=== PATIENT | female | born 1985 | race Caucasian/White ===

== ENCOUNTER 2016-05-16 20:48 | Inpatient (IN) | payer OTHER ==
--- NOTE | 2016-05-16 23:22 | HP ---
COWS - Scale Resting Pulse: 2= [place] 101-120 Sweatin=Flushed/Facial Moisture Restless Observation: 3= Extraneous Movement Pupil Size: 2= Moderately Dilated Bone or Joint Aches: 2= Severe Diffuse Aches Runny Nose/ Eye Tearin= Runny Nose/Eyes GI Upset > 30mins: 3= Vomiting/Diarrhea Tremor Observation: 2= Slight Tremor Visible Yawning Observation: 2= >3x During Session Anxiety or Irritability: 2=Irritable/Anxious Goose Flesh Skin: 0=Smooth Skin COWS Score: 22 CIWA Score - CIWA Score Nausea/Vomitin Muscle Tremors: 3 Anxiety: 3 Agitation: 3 Paroxysmal Sweats: 1-Minimal Palms Moist Orientation: 0-Oriented Tacttile Disturbances: 2-Mild Itch/Numbness/Burn Auditory Disturbances: 2-Mild Harshness/Frighten Visual Disturbances: 2-Mild Sensitivity Headache: 2-Mild CIWA-Ar Total Score: 21 Admission ROS BHS - HPI Chief Complaint: I NEED HELP TO STOP USING DRUGS HEROIN,XANAX,MARIJUANA Allergies/Adverse Reactions: Allergies Allergy/AdvReac Type Severity Reaction Status Date / Time Sulfa (Sulfonamide Allergy Severe Cough Verified 05/16/16 23:14 Antibiotics) History of Present Illness: THIS 30 YEARS OLD FEMLE WITH HEROIN,XANAX,MARIJUANA DEPENDENCE,WITHDRAWAL SYMPTOM,NEVER BEEN IN DETOX BEOFR, UNABLE TO STOP BY HERSELF HISTORY OF WEIGHT LOSS ADD NICOTINE DEPENDENCE DEPRESSION Exam Limitations: No Limitations - Ebola screening Have you traveled outside of the country in the last 21 days: No (N) Have you had contact with anyone from an Ebola affected area: No Do you have a fever: No - Review of Systems Constitutional: Chills, Diaphoresis, Loss of Appetite, Malaise, Night Sweats, Changes in sleep, Weakness, Unintentional Wgt. Loss EENT: reports: Tearing, Nose Congestion Respiratory: reports: No Symptoms reported Cardiac: reports: No Symptoms Reported GI: reports: Diarrhea, Nausea, Vomiting, Abdominal cramping : reports: No Symptoms Reported Musculoskeletal: reports: Back Pain, Joint Pain, Muscle Pain Integumentary: reports: Dryness Neuro: reports: Headache, Tremors Endocrine: reports: No Symptoms Reported Hematology: reports: No Symptoms Reported Psychiatric: reports: Depressed (ADD) Patient History - Patient Medical History Hx Anemia: No Hx Asthma: No Hx Chronic Obstructive Pulmonary Disease (COPD): No Hx Cancer: No Hx Cardiac Disorders: No Hx Congestive Heart Failure: No Hx Hypertension: No Hx Hypercholesterolemia: No Hx Pacemaker: No HX Cerebrovascular Accident: No Hx Seizures: No Hx Dementia: No Hx Diabetes: No Hx Gastrointestinal Disorders: No Hx Liver Disease: No Hx Genitourinary Disorders: No Hx Sexually Transmitted Disorders: No Hx Renal Disease (ESRD): No Hx Thyroid Disease: No Hx Human Immunodeficiency Virus (HIV): No (LAST 03/11 NEGATIVE) Hx Hepatitis C: No Hx Depression: Yes Hx Suicide Attempt: No Hx Bipolar Disorder: No Hx Schizophrenia: No Other Medical History: N SUICIDAL,NO HOMICIDAL,ADD - Patient Surgical History Past Surgical History: No - PPD History Previous Implant?: Yes Documented Results: Negative w/o proof Implanted On Prior [facility] Admission?: No PPD to be Administered?: Yes - Reproductive History Patient is a Female of Child Bearing Age (11 -55 yrs old): Yes Last Menstrual Period: 03/28/16 Patient : No - Smoking Cessation Smoking history: Current every day smoker Have you smoked in the past 12 months: Yes Aproximately how many cigarettes per day: 10 Hx Chewing Tobacco Use: No Initiated information on smoking cessation: Yes 'Breaking Loose' booklet given: 05/16/16 - Substance & Tx. History Hx Alcohol Use: No Hx Substance Use: Yes Substance Use Type: Heroin, Marijuana, Tranquilizers Hx Substance Use Treatment: No - Substances Abused Heroin Route: Inhalation Frequency: Daily Amount used: 6 BAGS Age of first use: 30 Date of Last Use: 05/16/16 Alprazolam (Xanax) Route: Oral Frequency: Daily Amount used: 1MG Age of first use: 18 Date of Last Use: 05/16/16 Family Disease History - Family Disease History Family History: Denies Admission Physical Exam BHS - Vital Signs Vital Signs: Vital Signs Temperature 97.6 F 05/16/16 23:21 Pulse Rate 106 H 05/16/16 23:21 Respiratory Rate 20 05/16/16 23:21 Blood Pressure 112/65 05/16/16 23:21 O2 Sat by Pulse Oximetry (%) - Physical General Appearance: Yes: Moderate Distress, Tremorous, Irritable, Sweating, Anxious HEENTM: Yes: Nasal Congestion Respiratory: Yes: Lungs Clear Neck: Yes: Within Normal Limits Breast: Yes: Breast Exam Deferred Cardiology: Yes: Tachycardia Abdominal: Yes: Within Normal Limits, Normal Bowel Sounds, Non Tender, Flat, Soft Genitourinary: Yes: Within Normal Limits Back: Yes: Muscle Spasm Musculoskeletal: Yes: Back pain, Joint Stiffness, Muscle Pain Extremities: Yes: Tremors Neurological: Yes: radiologic therapist II-XII NML intact, Fully Oriented, Alert, Motor Strength 5/5 Integumentary: Yes: Dry Lymphatic: Yes: Within Normal Limits - Diagnostic (1) Opioid dependence with withdrawal Current Visit: Yes Status: Acute (2) Uncomplicated sedative, hypnotic or anxiolytic withdrawal Current Visit: Yes Status: Acute (3) Cannabis dependence Current Visit: Yes Status: Acute (4) ADD (attention deficit disorder) Current Visit: Yes Status: Chronic (5) Weight loss Current Visit: Yes Status: Chronic (6) Nicotine dependence Current Visit: Yes Status: Acute (7) Depression Current Visit: Yes Status: Acute Cleared for Admission S - Detox or Rehab S Level of Care: Medically Managed Detox Regimen/Protocol: Methadone
[2016-05-16 23:26] VITALS: BMI 21.1
[2016-05-16] MEDS ORDERED: MENTHOL/PHENOL 1 EACH UD MM PRN (23:36)
[2016-05-16] MEDS ORDERED: MAGNESIUM HYDROX 2400MG/30ML ORAL SUSPENSION 30 ML CUP PO PRN (23:36)
[2016-05-16] MEDS ORDERED: MAG HYDROX/AL HYDROX/SIMETH 30 ML UNIT-DOSE CUP PO PRN (23:36)
[2016-05-16] MEDS ORDERED: guaiFENesin/D-METHORPHAN HB 10 ML UNIT-DOSE CUPS PO PRN (23:36)
[2016-05-16] MEDS ORDERED: ACETAMINOPHEN 325 MG TABLET (FP) PO PRN (23:36)
[2016-05-16] MEDS ORDERED: LOPERAMIDE HCL 2 MG CAPSULE PO PRN (23:36)
[2016-05-16] MEDS ORDERED: diphenhydrAMINE HCL 50 MG CAPSULE PO PRN (23:36)
[2016-05-16] MEDS ORDERED: P-EPHED 60MG/TRIPROLIDI 2.5MG TABLET PO PRN (23:36)
[2016-05-16] MEDS ORDERED: MAGNESIUM CITRATE 300 ML BOTTLE PO PRN (23:36)
[2016-05-16] MEDS ORDERED: IBUPROFEN 400 MG TABLET (FP) PO PRN (23:36)
[2016-05-17] MEDS ORDERED: METHADONE HCL 10 MG TABLET (FOR DETOX USE ONLY) PO ONE ×3 (00:29→23:00)
[2016-05-17] MEDS: diazePAM 5 MG TABLET PO PRN ×3 (00:56→22:22)
[2016-05-17 10:16] LABS: MCH 26.9 pg (25.7-33.7); MCHC 32.9 g/dl (32.0-36.0); MEAN CELL VOLUME 81.7 fl (80-96); PLATELET COUNT 151 K/MM3 (134-434); WHITE BLOOD COUNT 5.6 K/mm3 (4.0-10.0)
[2016-05-17 10:24] LABS: ALBUMIN 3.1 g/dl (3.4-5.0); ALK PHOS 113 U/L (45-117); ANION GAP 7 (8-16); BILIRUBIN,TOTAL 0.5 mg/dL (0.2-1.0); CALCIUM 8.4 mg/dL (8.5-10.1); CO2 28 mmol/L (21-32); CREATININE 0.6 mg/dL (0.55-1.02); GLUCOSE,RANDOM 90 mg/dL (74-106); SGOT/AST 21 U/L (15-37); SGPT/ALT 37 U/L (12-78); TOT PROT 5.8 g/dl (6.4-8.2)
[2016-05-17] MEDS: PRENATAL VITAMINS W/ FOLIC ACID TABLET (FP) PO SCH (10:38)
[2016-05-17] MEDS: NICOTINE 21 MG/24 HOURS TOPICAL PATCH TD SCH (10:38)
[2016-05-17 11:46] LABS: HIV 1 & 2 AB NEGATIVE; HIV 1 AGp24 NEGATIVE
--- NOTE | 2016-05-17 13:44 | PN ---
S CIWA - CIWA Score Nausea/Vomitin Muscle Tremors: 2 Anxiety: 3 Agitation: 2 Paroxysmal Sweats: 3 Orientation: 0-Oriented Tacttile Disturbances: 1-Very Mild Itch/Numbness Auditory Disturbances: 0-None Visual Disturbances: 0-None Headache: 1-Very Mild CIWA-Ar Total Score: 14 S COWS - Scale Resting Pulse: 2= [place] 101-120 Sweatin=Flushed/Facial Moisture Restless Observation: 1= Difficult to Sit Still Pupil Size: 1= Pupils >than Normal Bone or Joint Aches: 1= Mild Discomfort Runny Nose/ Eye Tearin= Nasal Congestion GI Upset > 30mins: 1= Stomach Cramp Tremor Observation of Outstretched Hands: 1= Tremor [place], Not Seen Yawning Observation: 1= 1-2x During Session Anxiety or Irritability: 2=Irritable/Anxious Goose Flesh Skin: 0=Smooth Skin COWS Score: 13 S Progress Note (SOAP) Subjective: interrupted sleep, sweats , no cough , no ivda Objective: 05/17/16 13:41 Vital Signs Temperature 97.3 F L 05/17/16 09:58 Pulse Rate 102 H 05/17/16 09:58 Respiratory Rate 18 05/17/16 09:58 Blood Pressure 122/65 05/17/16 09:58 O2 Sat by Pulse Oximetry (%) Laboratory Tests 05/17/16 05/17/16 05/17/16 08:00 08:00 08:00 WBC 5.6 RBC 4.95 Hgb 13.3 Hct 40.4 MCV 81.7 MCHC 32.9 RDW 13.0 Plt Count 151 MPV 10.0 Sodium 142 Potassium 4.0 Chloride 107 Carbon Dioxide 28 Anion Gap 7 L BUN 16 Creatinine 0.6 Creat Clearance w eGFR > 60 Random Glucose 90 Calcium 8.4 L Total Bilirubin 0.5 AST 21 ALT 37 Alkaline Phosphatase 113 Total Protein 5.8 L Albumin 3.1 L RPR Titer HIV 1&2 Antibody Screen Negative HIV P24 Antigen Negative 05/17/16 08:00 WBC RBC Hgb Hct MCV MCHC RDW Plt Count MPV Sodium Potassium Chloride Carbon Dioxide Anion Gap BUN Creatinine Creat Clearance w eGFR Random Glucose Calcium Total Bilirubin AST ALT Alkaline Phosphatase Total Protein Albumin RPR Titer Nonreactive HIV 1&2 Antibody Screen HIV P24 Antigen pt aox3 ambulating in nad , comfortable oral - clear lungs - clear to a/p cor - tachy, no murmur 05/17/16 13:43 pulse ox 96% on ra 05/17/16 17:51 Assessment: 05/17/16 13:43 withdrawl sx's h/o anxety adhd 05/17/16 13:44 Plan: cont. detox increase fluids monitor temps.
--- NOTE | 2016-05-17 15:07 | CONSULT ---
[facility] Psychiatric Consult - Data Date of interview: 05/17/16 Admission source: [facility] Identifying data: First admission to [facility] for this 30 y/o female seeking detox treatment on for heroin,marijuana and benzodiazepine ( xanax) dependence.Patient is ,a mother of one,domiciled and employed. Substance Abuse History: Smoking Cessation. Smoking history: Current every day smoker. Have you smoked in the past 12 months: Yes. Aproximately how many cigarettes per day: 10. Hx Chewing Tobacco Use: No. Initiated information on smoking cessation: Yes. 'Breaking Loose' booklet given: 05/16/16. - Substance & Tx. History. Hx Alcohol Use: No. Hx Substance Use: Yes. Substance Use Type : Heroin, Marijuana, Tranquilizers. Hx Substance Use Treatment: No. Patient confirmed abusing these substances listed above. Medical History: Patient endorses good general health. Psychiatric History: No reported history of psychiatric hospitalizations.Patient indicates that she used to see a private psychiatrist for medication management of ADD.Due to financial difficulties,she dropped out of his care and she switched to her primary care doctor for refills.Ms Thornton states that she is prescribed wellbutrin XL 300 mg/day (not taken for weeks) + adderall 30 mg po tid and xanax 0.5 mg/day.According to the patient,she last took adderall prior coming to [facility].She denies history of suicide attempts. Physical/Sexual Abuse/Trauma History: No reported history of sexual abuse or domestic violence. Mental Status Exam - Mental Status Exam Alert and Oriented to: Time, Place, Person Cognitive Function: Good Patient Appearance: Unkempt, Disheveled (thin habitus) Mood: Nervous, Anxious, Apprehensive Affect: Mood Congruent Patient Behavior: Fatigued, Appropriate, Cooperative Speech Pattern: Clear Voice Loudness: Normal Thought Process: Goal Oriented Thought Disorder: Not Present Hallucinations: Denies Suicidal Ideation: Denies Homicidal Ideation: Denies Insight/Judgement: Poor Sleep: Well Appetite: Good Muscle strength/Tone: Normal Gait/Station: Normal Psychiatric Findings - Problem List ([place] 1, 2,3) (1) Opioid dependence with withdrawal Current Visit: Yes Status: Acute (2) Uncomplicated sedative, hypnotic or anxiolytic withdrawal Current Visit: Yes Status: Acute (3) Cannabis dependence Current Visit: Yes Status: Acute (4) Nicotine dependence Current Visit: Yes Status: Acute (5) Substance induced mood disorder Current Visit: Yes Status: Acute (6) ADD (attention deficit disorder) Current Visit: Yes Status: Chronic (7) Weight loss Current Visit: Yes Status: Chronic - Initial Treatment Plan Initial Treatment Plan: Psychoeducation.Detoxification.Medications : adderall XR 30 mg po daily.Side effects/benefits discussed with the patient.She agrees with this careplan.No scripts at discharge (patient indicates that she has adequate supply of medications at home).Declines to take wellbutrin.Observation.
--- NOTE | 2016-05-17 21:34 | EKG ---
Test Reason : Blood Pressure : / mmHG Vent. Rate : 088 BPM Atrial Rate : 088 BPM P-R Int : 172 ms QRS Dur : 098 ms QT Int : 420 ms P-R-T Axes : 072 057 057 degrees QTc Int : 508 ms NORMAL SINUS RHYTHM PROLONGED QT ABNORMAL ECG NO PREVIOUS ECGS AVAILABLE Confirmed by SERAFIN DANIEL MD ([id number]) on 05/17/2016 9:34:12 PM Referred By: Confirmed By:SERAFIN DANIEL MD
[2016-05-17] MEDS: THIAMINE HCL 100 MG TABLET (FP) PO SCH (22:22)
[2016-05-18] MEDS ORDERED: cloNIDine HCL 0.1 MG TABLET PO ONE (09:15)
[2016-05-18] MEDS: NICOTINE 21 MG/24 HOURS TOPICAL PATCH TD SCH (09:16)
[2016-05-18] MEDS: DEXTROAMPHETAMINE/AMPHETAMINE 10 MG CAP.ER.24H PO SCH (09:16)
[2016-05-18] MEDS: NICOTINE POLACRILEX 2 MG GUM BC PRN ×3 (09:19→14:15)
[2016-05-18] MEDS ORDERED: METHADONE HCL 10 MG TABLET (FOR DETOX USE ONLY) PO ONE (10:00)
[2016-05-18] MEDS: PRENATAL VITAMINS W/ FOLIC ACID TABLET (FP) PO SCH (10:09)
--- NOTE | 2016-05-18 10:54 | PN ---
[facility] CIWA - CIWA Score Nausea/Vomitin-No Nausea/No Vomiting Muscle Tremors: 3 Anxiety: 3 Agitation: 3 Paroxysmal Sweats: 3 Orientation: 0-Oriented Tacttile Disturbances: 0-None Auditory Disturbances: 0-None Visual Disturbances: 0-None Headache: 0-None Present CIWA-Ar Total Score: 12 BHS COWS - Scale Resting Pulse: 4= [place] > 121 Sweatin=Flushed/Facial Moisture Restless Observation: 1= Difficult to Sit Still Pupil Size: 0= Normal to Room Light Bone or Joint Aches: 2= Severe Diffuse Aches Runny Nose/ Eye Tearin= Runny Nose/Eyes GI Upset > 30mins: 1= Stomach Cramp Tremor Observation of Outstretched Hands: 2= Slight Tremor Visible Yawning Observation: 1= 1-2x During Session Anxiety or Irritability: 2=Irritable/Anxious Goose Flesh Skin: 3=[place] COWS Score: 20 BHS Progress Note (SOAP) Subjective: agitation sweats irritable shakes interrupted sleep body aches Objective: 05/18/16 10:55 Vital Signs Temperature 97.1 F L 05/18/16 10:00 Pulse Rate 112 H 05/18/16 10:00 Respiratory Rate 18 05/18/16 10:00 Blood Pressure 121/64 05/18/16 10:00 O2 Sat by Pulse Oximetry (%) Laboratory Tests 05/17/16 05/17/16 05/17/16 08:00 08:00 08:00 WBC 5.6 RBC 4.95 Hgb 13.3 Hct 40.4 MCV 81.7 MCHC 32.9 RDW 13.0 Plt Count 151 MPV 10.0 Sodium 142 Potassium 4.0 Chloride 107 Carbon Dioxide 28 Anion Gap 7 L BUN 16 Creatinine 0.6 Creat Clearance w eGFR > 60 Random Glucose 90 Calcium 8.4 L Total Bilirubin 0.5 AST 21 ALT 37 Alkaline Phosphatase 113 Total Protein 5.8 L Albumin 3.1 L RPR Titer HIV 1&2 Antibody Screen Negative HIV P24 Antigen Negative 05/17/16 08:00 WBC RBC Hgb Hct MCV MCHC RDW Plt Count MPV Sodium Potassium Chloride Carbon Dioxide Anion Gap BUN Creatinine Creat Clearance w eGFR Random Glucose Calcium Total Bilirubin AST ALT Alkaline Phosphatase Total Protein Albumin RPR Titer Nonreactive HIV 1&2 Antibody Screen HIV P24 Antigen awake/alert ambulating no acute distress Assessment: 05/18/16 11:03 withdrawal sx Plan: continue detox increase fluids clonidine 0.1mg bid
[2016-05-18] MEDS: diazePAM 5 MG TABLET PO PRN ×2 (16:01→22:23)
--- NOTE | 2016-05-18 18:57 | PN ---
Psychiatric Progress Note Vital Signs: Vital Signs Period Temp Pulse Resp BP Sys/Jones Pulse Ox Last 24 Hr 96.3 F-98.1 F 85-112 16-20 104-126/55-72 Date of Session: 05/18/16 Chief Complaint:: " I want my adderall ".Follow up visit. HPI: Already evaluated on 05/17/16.Case of a 30 y/o female undergoing detox treatment for heroin,marijuana and benzodiazepine dependence co-morbid with ADD.Reconsult is requested to revisit the issue of adderall dose. ROS: Patient is ambulatory.Physical complaints :none offered.Cognition is intact. Current Medications: Active Medications Generic Name Dose Route Start Last Admin Trade Name Freq PRN Reason Stop Dose Admin Acetaminophen 650 mg 05/16/16 23:36 Tylenol - PO Q4H PRN FEVER OR PAIN Al Hydroxide/Mg Hydroxide 30 ml 05/16/16 23:36 Mylanta Oral Suspension - PO Q6H PRN DYSPEPSIA Amphetamine/Dextroamphetamine 30 mg 05/18/16 10:00 05/18/16 09:16 Adderall Xr - PO 30 mg DAILY AAMIR Administration Clonidine 0.1 mg 05/18/16 22:00 Catapres - PO BID AAMIR Diazepam 10 mg 05/17/16 00:29 05/18/16 16:01 Valium - PO 05/20/16 00:28 10 mg Q4H PRN Administration WITHDRAWAL(CONT SUBST) Diphenhydramine HCl 50 mg 05/16/16 23:36 Benadryl - PO HSMR1 PRN INSOMNIA Eucalyptus/Menthol/Phenol/Sorbitol 1 each 05/16/16 23:36 Cepastat Lozenge - MM Q4H PRN SORE THROAT Guaifenesin 10 ml 05/16/16 23:36 Robitussin Dm - PO Q6H PRN COUGH Hydroxyzine Pamoate 25 mg 05/16/16 23:36 Vistaril - PO Q4H PRN AGITATION Ibuprofen 400 mg 05/16/16 23:36 Motrin - PO Q6H PRN SEVERE PAIN Loperamide HCl 4 mg 05/16/16 23:36 Imodium - PO Q6H PRN DIARRHEA Magnesium Citrate 300 ml 05/16/16 23:36 Citroma - PO Q48H PRN CONSTIPATION Magnesium Hydroxide 30 ml 05/16/16 23:36 Milk Of Magnesia - PO DAILY PRN CONSTIPATION Methadone HCl 10 mg 05/21/16 10:00 Dolophine - PO 05/21/16 10:01 ONCE ONE Methadone HCl 15 mg 05/19/16 10:00 Dolophine - PO 05/19/16 10:01 ONCE ONE Methadone HCl 15 mg 05/20/16 10:00 Dolophine - PO 05/20/16 10:01 ONCE ONE Methadone HCl 5 mg 05/22/16 06:00 Dolophine - PO 05/22/16 06:01 ONCE@0600 ONE Nicotine 21 mg 05/17/16 10:00 05/18/16 09:16 Nicoderm Patch - TD 21 mg DAILY AAMIR Administration Nicotine Polacrilex 2 mg 05/16/16 23:36 05/18/16 14:15 Nicorette Gum - BC 2 mg Q2H PRN Administration NICOTINE REPLACEMENT RX Multivit/Folic Acid/Iron 1 tab 05/17/16 10:00 05/18/16 10:09 Vitamins ([facility]) - PO 1 tab DAILY AAMIR Administration Pseudoephedrine/Triprolidine 1 combo 05/16/16 23:36 Actifed - PO TID PRN NASAL CONGESTION Thiamine HCl 100 mg 05/17/16 22:00 05/17/16 22:22 Vitamin B1 - PO 100 mg HS AAMIR Administration Medication(s) Change(s): Patient agrees to continue on adderall XR 30 mg po daily.Wellbutrin XL 300 mg is added to the regimen at patient's request.She is made aware of the risk of seizures (bupropion).She consents (verbally) to follow this plan of care.She declines scripts (reports that she has an adequate supply of medications at home).Case discussed with [facility] pharmacist @ [phone].Adderall (immediate release formulation) is not formulary. Current Side Effect: No Lab tests ordered: No Lab tests reviewed: Yes Provider note:: Patient seen in the presence of a female staff,Karen.Issue of adderall is,again,discussed.Ms Thornton wants to get 30 mg bid of the available formulation (adderall XR) and,in this second interview,she changes her mind about wellbutrin.Now the patient requests wellbutrin to be added to this regimen.She is made aware that adderall (immediate release formulation) is not formulary at the institution.This situation is discussed with the pharmacist on duty.Psychiatric Aide is informed that the drug cannot be made available (after approval by the medical committee) for several more days.In the meantime,the XR form is used as an alternate.Moreover,the patient was offered other alternates ( strattera,ritalin) but she refused.The purpose of this re-consult is not for assessment of mental status.Ms Thornton shows no evidence of psychosis or obdulio.Thought processes are logical,coherent and goal-directed.Patient had chosen to decline alternate options of care.Mental status is stable.She can be managed on if she elects to complete this program. Total face to face time:: 30 Mental Status Exam - Mental Status Exam Alert and Oriented to: Time, Place, Person Cognitive Function: Good Patient Appearance: Well Groomed Mood: Nervous, Anxious Affect: Mood Congruent Patient Behavior: Cooperative Speech Pattern: Clear Voice Loudness: Normal Thought Process: Goal Oriented Hallucinations: Denies Suicidal Ideation: Denies Homicidal Ideation: Denies Insight/Judgement: Fair Appetite: Good Muscle strength/Tone: Normal Gait/Station: Normal Psychiatric Treatment Plan - Problem List (1) Opioid dependence with withdrawal Current Visit: Yes (2) Uncomplicated sedative, hypnotic or anxiolytic withdrawal Current Visit: Yes (3) Cannabis dependence Current Visit: Yes (4) Nicotine dependence Current Visit: Yes (5) Substance induced mood disorder Current Visit: Yes (6) ADD (attention deficit disorder) Current Visit: Yes (7) Weight loss Current Visit: Yes
[2016-05-18] MEDS: THIAMINE HCL 100 MG TABLET (FP) PO SCH (22:23)
[2016-05-18] MEDS: cloNIDine HCL 0.1 MG TABLET PO SCH (22:25)
--- NOTE | 2016-05-19 09:29 | PN ---
BHS Progress Note (SOAP) Subjective: interrupted sleep. sweats, nausea, yawning Objective: 05/19/16 09:27 Vital Signs Temperature 97.9 F 05/19/16 07:04 Pulse Rate 113 H 05/19/16 07:04 Respiratory Rate 20 05/19/16 07:04 Blood Pressure 119/64 05/19/16 07:04 O2 Sat by Pulse Oximetry (%) Laboratory Tests 05/17/16 05/17/16 05/17/16 08:00 08:00 08:00 WBC 5.6 RBC 4.95 Hgb 13.3 Hct 40.4 MCV 81.7 MCHC 32.9 RDW 13.0 Plt Count 151 MPV 10.0 Sodium 142 Potassium 4.0 Chloride 107 Carbon Dioxide 28 Anion Gap 7 L BUN 16 Creatinine 0.6 Creat Clearance w eGFR > 60 Random Glucose 90 Calcium 8.4 L Total Bilirubin 0.5 AST 21 ALT 37 Alkaline Phosphatase 113 Total Protein 5.8 L Albumin 3.1 L RPR Titer HIV 1&2 Antibody Screen Negative HIV P24 Antigen Negative 05/17/16 08:00 WBC RBC Hgb Hct MCV MCHC RDW Plt Count MPV Sodium Potassium Chloride Carbon Dioxide Anion Gap BUN Creatinine Creat Clearance w eGFR Random Glucose Calcium Total Bilirubin AST ALT Alkaline Phosphatase Total Protein Albumin RPR Titer Nonreactive HIV 1&2 Antibody Screen HIV P24 Antigen pt aox3 yawning , restless Assessment: 05/19/16 09:28 withdrawal sx's Plan: cont. detox increase fluids
[2016-05-19] MEDS ORDERED: METHADONE HCL 5 MG TABLET (FOR DETOX USE ONLY) PO ONE (10:00)
[2016-05-19] MEDS: DEXTROAMPHETAMINE/AMPHETAMINE 10 MG CAP.ER.24H PO SCH (10:18)
[2016-05-19] MEDS: cloNIDine HCL 0.1 MG TABLET PO SCH ×2 (10:18→22:14)
[2016-05-19] MEDS: PRENATAL VITAMINS W/ FOLIC ACID TABLET (FP) PO SCH (10:19)
[2016-05-19] MEDS: hydrOXYzine PAMOATE 25 MG CAPSULE (FP) PO PRN (10:21)
[2016-05-19] MEDS: NICOTINE POLACRILEX 2 MG GUM BC PRN ×2 (10:22→13:12)
[2016-05-19] MEDS: NICOTINE 21 MG/24 HOURS TOPICAL PATCH TD SCH (10:22)
[2016-05-19] MEDS: diazePAM 5 MG TABLET PO PRN ×2 (15:22→18:44)
[2016-05-19] MEDS: THIAMINE HCL 100 MG TABLET (FP) PO SCH (22:14)
[2016-05-20] MEDS: hydrOXYzine PAMOATE 25 MG CAPSULE (FP) PO PRN ×2 (05:34→17:23)
[2016-05-20 09:34] LABS: URINE APPEARANCE CLEAR; URINE BILIRUBIN NEGATIVE (NEGATIVE); URINE BLOOD NEGATIVE (NEGATIVE); URINE COLOR YELLOW; URINE GLUCOSE (UA) NEGATIVE (NEGATIVE); URINE KETONE NEGATIVE (NEGATIVE); URINE LEUK ESTERASE NEGATIVE (NEGATIVE); URINE NITRITE NEGATIVE (NEGATIVE); URINE PROTEIN NEGATIVE (NEGATIVE); URINE UROBILINOGEN NEGATIVE E.U./dl (0.2-1.0)
[2016-05-20] MEDS ORDERED: METHADONE HCL 5 MG TABLET (FOR DETOX USE ONLY) PO ONE (10:00)
[2016-05-20] MEDS: PRENATAL VITAMINS W/ FOLIC ACID TABLET (FP) PO SCH (10:07)
[2016-05-20] MEDS: cloNIDine HCL 0.1 MG TABLET PO SCH ×2 (10:08→22:46)
[2016-05-20] MEDS: DEXTROAMPHETAMINE/AMPHETAMINE 10 MG CAP.ER.24H PO SCH (10:08)
[2016-05-20] MEDS: NICOTINE 21 MG/24 HOURS TOPICAL PATCH TD SCH (10:08)
--- NOTE | 2016-05-20 14:42 | PN ---
S Progress Note (SOAP) Subjective: Anxious, Sweating, Tremors. Objective: PT. A & O X 3, OBSERVED AMBULATING ON UNIT. 05/20/16 14:39 Vital Signs Temperature 96.8 F L 05/20/16 14:32 Pulse Rate 97 H 05/20/16 14:32 Respiratory Rate 18 05/20/16 14:32 Blood Pressure 100/65 05/20/16 14:32 O2 Sat by Pulse Oximetry (%) Laboratory Last Values WBC 5.6 K/mm3 (4.0-10.0) 05/17/16 08:00 RBC 4.95 M/mm3 (3.60-5.2) 05/17/16 08:00 Hgb 13.3 GM/dL (10.7-15.3) 05/17/16 08:00 Hct 40.4 % (32.4-45.2) 05/17/16 08:00 MCV 81.7 fl (80-96) 05/17/16 08:00 MCHC 32.9 g/dl (32.0-36.0) 05/17/16 08:00 RDW 13.0 % (11.6-15.6) 05/17/16 08:00 Plt Count 151 K/MM3 (134-434) 05/17/16 08:00 MPV 10.0 fl (7.5-11.1) 05/17/16 08:00 Sodium 142 mmol/L (136-145) 05/17/16 08:00 Potassium 4.0 mmol/L (3.5-5.1) 05/17/16 08:00 Chloride 107 mmol/L (98-107) 05/17/16 08:00 Carbon Dioxide 28 mmol/L (21-32) 05/17/16 08:00 Anion Gap 7 (8-16) L 05/17/16 08:00 BUN 16 mg/dL (7-18) 05/17/16 08:00 Creatinine 0.6 mg/dL (0.55-1.02) 05/17/16 08:00 Creat Clearance w eGFR > 60 (>60) 05/17/16 08:00 Random Glucose 90 mg/dL (74-106) 05/17/16 08:00 Calcium 8.4 mg/dL (8.5-10.1) L 05/17/16 08:00 Total Bilirubin 0.5 mg/dL (0.2-1.0) 05/17/16 08:00 AST 21 U/L (15-37) 05/17/16 08:00 ALT 37 U/L (12-78) 05/17/16 08:00 Alkaline Phosphatase 113 U/L (45-117) 05/17/16 08:00 Total Protein 5.8 g/dl (6.4-8.2) L 05/17/16 08:00 Albumin 3.1 g/dl (3.4-5.0) L 05/17/16 08:00 Urine Color Yellow 05/20/16 07:50 Urine Appearance Clear 05/20/16 07:50 Urine pH 6.0 (5.0-8.0) 05/20/16 07:50 Ur Specific [place] 1.011 (1.001-1.035) 05/20/16 07:50 Urine Protein Negative (NEGATIVE) 05/20/16 07:50 Urine Glucose (UA) Negative (NEGATIVE) 05/20/16 07:50 Urine Ketones Negative (NEGATIVE) 05/20/16 07:50 Urine Blood Negative (NEGATIVE) 05/20/16 07:50 Urine Nitrite Negative (NEGATIVE) 05/20/16 07:50 Urine Bilirubin Negative (NEGATIVE) 05/20/16 07:50 Urine Urobilinogen Negative E.U./dl (0.2-1.0) 05/20/16 07:50 Ur Leukocyte Esterase Negative (NEGATIVE) 05/20/16 07:50 RPR Titer Nonreactive (NONREACTIVE) 05/17/16 08:00 HIV 1&2 Antibody Screen Negative 05/17/16 08:00 HIV P24 Antigen Negative 05/17/16 08:00 LABS NOTED. Assessment: 05/20/16 14:40 WITHDRAWAL SYMPTOMS. Plan: CONTINUE DETOX. ADVISED PATIENT TO FOLLOW-UP WITH [facility] / REHAB MEDICAL PROVIDER AFTER DISCHARGE FROM DETOX FOR GENERAL MEDICAL ASSESSMENT AND FOR ABNORMAL LAB VALUES.
--- NOTE | 2016-05-20 14:45 | PN ---
[facility] Progress Note Note: Received report that pt. hit 4th toe on Right foot on leg of chair in dining room. Pt. reports that toe is painful. Toe appears swollen and discolored. Pt. reports pain with flexion of toe. Pt. also reports history of previous injury to same toe. Pt. advised to keep right foot elevated and to apply ice to affected toe. Pt. sent to [facility] ER via ambulance for further evaluation. BELL CAPTAIN spoke to KIMBERLEE Jones to give report on patient. Rupal Orozco NP
[2016-05-20] MEDS: THIAMINE HCL 100 MG TABLET (FP) PO SCH (22:46)
[2016-05-21] MEDS ORDERED: METHADONE HCL 10 MG TABLET (FOR DETOX USE ONLY) PO ONE (10:00)
[2016-05-21] MEDS: cloNIDine HCL 0.1 MG TABLET PO SCH ×2 (10:42→22:26)
[2016-05-21] MEDS: DEXTROAMPHETAMINE/AMPHETAMINE 10 MG CAP.ER.24H PO SCH (10:42)
[2016-05-21] MEDS: NICOTINE 21 MG/24 HOURS TOPICAL PATCH TD SCH (10:43)
[2016-05-21] MEDS: PRENATAL VITAMINS W/ FOLIC ACID TABLET (FP) PO SCH (10:43)
--- NOTE | 2016-05-21 12:53 | PN ---
S Progress Note (SOAP) Subjective: Irritability and anxiety Objective: 05/21/16 12:52 NAD Vital Signs - 8 hr 05/21/16 05/21/16 06:00 10:00 Temperature 97.3 F L 96.8 F L Pulse Rate 71 95 H Respiratory 16 18 Rate Blood Pressure 102/56 108/65 Laboratory Last Values WBC 5.6 K/mm3 (4.0-10.0) 05/17/16 08:00 RBC 4.95 M/mm3 (3.60-5.2) 05/17/16 08:00 Hgb 13.3 GM/dL (10.7-15.3) 05/17/16 08:00 Hct 40.4 % (32.4-45.2) 05/17/16 08:00 MCV 81.7 fl (80-96) 05/17/16 08:00 MCHC 32.9 g/dl (32.0-36.0) 05/17/16 08:00 RDW 13.0 % (11.6-15.6) 05/17/16 08:00 Plt Count 151 K/MM3 (134-434) 05/17/16 08:00 MPV 10.0 fl (7.5-11.1) 05/17/16 08:00 Sodium 142 mmol/L (136-145) 05/17/16 08:00 Potassium 4.0 mmol/L (3.5-5.1) 05/17/16 08:00 Chloride 107 mmol/L (98-107) 05/17/16 08:00 Carbon Dioxide 28 mmol/L (21-32) 05/17/16 08:00 Anion Gap 7 (8-16) L 05/17/16 08:00 BUN 16 mg/dL (7-18) 05/17/16 08:00 Creatinine 0.6 mg/dL (0.55-1.02) 05/17/16 08:00 Creat Clearance w eGFR > 60 (>60) 05/17/16 08:00 Random Glucose 90 mg/dL (74-106) 05/17/16 08:00 Calcium 8.4 mg/dL (8.5-10.1) L 05/17/16 08:00 Total Bilirubin 0.5 mg/dL (0.2-1.0) 05/17/16 08:00 AST 21 U/L (15-37) 05/17/16 08:00 ALT 37 U/L (12-78) 05/17/16 08:00 Alkaline Phosphatase 113 U/L (45-117) 05/17/16 08:00 Total Protein 5.8 g/dl (6.4-8.2) L 05/17/16 08:00 Albumin 3.1 g/dl (3.4-5.0) L 05/17/16 08:00 Urine Color Yellow 05/20/16 07:50 Urine Appearance Clear 05/20/16 07:50 Urine pH 6.0 (5.0-8.0) 05/20/16 07:50 Ur Specific [place] 1.011 (1.001-1.035) 05/20/16 07:50 Urine Protein Negative (NEGATIVE) 05/20/16 07:50 Urine Glucose (UA) Negative (NEGATIVE) 05/20/16 07:50 Urine Ketones Negative (NEGATIVE) 05/20/16 07:50 Urine Blood Negative (NEGATIVE) 05/20/16 07:50 Urine Nitrite Negative (NEGATIVE) 05/20/16 07:50 Urine Bilirubin Negative (NEGATIVE) 05/20/16 07:50 Urine Urobilinogen Negative E.U./dl (0.2-1.0) 05/20/16 07:50 Ur Leukocyte Esterase Negative (NEGATIVE) 05/20/16 07:50 RPR Titer Nonreactive (NONREACTIVE) 05/17/16 08:00 HIV 1&2 Antibody Screen Negative 05/17/16 08:00 HIV P24 Antigen Negative 05/17/16 08:00 Labs noted Assessment: 05/21/16 12:52 resolving withdrawal sx Plan: continue detox
[2016-05-21] MEDS: hydrOXYzine PAMOATE 25 MG CAPSULE (FP) PO PRN ×2 (15:22→22:26)
[2016-05-21] MEDS: THIAMINE HCL 100 MG TABLET (FP) PO SCH (22:26)
[2016-05-22] MEDS ORDERED: METHADONE HCL 5 MG TABLET (FOR DETOX USE ONLY) PO ONE (06:00)
[2016-05-22 06:52] VITALS: BP 90/68; PULSE 73; TEMP 97.2
--- NOTE | 2016-05-22 09:15 | DS ---
[facility] Detox Discharge Summary Admission Date: 05/16/16 Discharge Date: 05/22/16 - History Present History: Cannabis Dependence, Opioid Dependence, Sedative Dependence Pertinent Past History: ADD - Physical Exam Results Vital Signs: Vital Signs Temperature 97.2 F L 05/22/16 06:00 Pulse Rate 73 05/22/16 06:00 Respiratory Rate 18 05/22/16 06:00 Blood Pressure 90/68 05/22/16 06:00 O2 Sat by Pulse Oximetry (%) Pertinent Admission Physical Exam Findings: Withdrawal sx. Laboratory Last Values WBC 5.6 K/mm3 (4.0-10.0) 05/17/16 08:00 RBC 4.95 M/mm3 (3.60-5.2) 05/17/16 08:00 Hgb 13.3 GM/dL (10.7-15.3) 05/17/16 08:00 Hct 40.4 % (32.4-45.2) 05/17/16 08:00 MCV 81.7 fl (80-96) 05/17/16 08:00 MCHC 32.9 g/dl (32.0-36.0) 05/17/16 08:00 RDW 13.0 % (11.6-15.6) 05/17/16 08:00 Plt Count 151 K/MM3 (134-434) 05/17/16 08:00 MPV 10.0 fl (7.5-11.1) 05/17/16 08:00 Sodium 142 mmol/L (136-145) 05/17/16 08:00 Potassium 4.0 mmol/L (3.5-5.1) 05/17/16 08:00 Chloride 107 mmol/L (98-107) 05/17/16 08:00 Carbon Dioxide 28 mmol/L (21-32) 05/17/16 08:00 Anion Gap 7 (8-16) L 05/17/16 08:00 BUN 16 mg/dL (7-18) 05/17/16 08:00 Creatinine 0.6 mg/dL (0.55-1.02) 05/17/16 08:00 Creat Clearance w eGFR > 60 (>60) 05/17/16 08:00 Random Glucose 90 mg/dL (74-106) 05/17/16 08:00 Calcium 8.4 mg/dL (8.5-10.1) L 05/17/16 08:00 Total Bilirubin 0.5 mg/dL (0.2-1.0) 05/17/16 08:00 AST 21 U/L (15-37) 05/17/16 08:00 ALT 37 U/L (12-78) 05/17/16 08:00 Alkaline Phosphatase 113 U/L (45-117) 05/17/16 08:00 Total Protein 5.8 g/dl (6.4-8.2) L 05/17/16 08:00 Albumin 3.1 g/dl (3.4-5.0) L 05/17/16 08:00 Urine Color Yellow 05/20/16 07:50 Urine Appearance Clear 05/20/16 07:50 Urine pH 6.0 (5.0-8.0) 05/20/16 07:50 Ur Specific [employer] 1.011 (1.001-1.035) 05/20/16 07:50 Urine Protein Negative (NEGATIVE) 05/20/16 07:50 Urine Glucose (UA) Negative (NEGATIVE) 05/20/16 07:50 Urine Ketones Negative (NEGATIVE) 05/20/16 07:50 Urine Blood Negative (NEGATIVE) 05/20/16 07:50 Urine Nitrite Negative (NEGATIVE) 05/20/16 07:50 Urine Bilirubin Negative (NEGATIVE) 05/20/16 07:50 Urine Urobilinogen Negative E.U./dl (0.2-1.0) 05/20/16 07:50 Ur Leukocyte Esterase Negative (NEGATIVE) 05/20/16 07:50 RPR Titer Nonreactive (NONREACTIVE) 05/17/16 08:00 HIV 1&2 Antibody Screen Negative 05/17/16 08:00 HIV P24 Antigen Negative 05/17/16 08:00 labs noted - Treatment Hospital Course: Detox Protocol Followed, Detoxed Safely, Responded well, Discharged Condition Good, Rehab Referral Accepted - Medication Discharge Medications: Ambulatory Orders Alprazolam [Xanax] 0.5 mg PO BID 05/16/16 Bupropion HCl [Wellbutrin Xl -] 300 mg PO DAILY 05/16/16 Dextroamphetamine/Amphetamine [Adderall 10 mg Tablet] 30 mg PO TID 05/16/16 - Diagnosis (1) Cannabis dependence Status: Acute (2) Nicotine dependence Status: Acute Qualifiers: Nicotine product type: cigarettes Substance use status: uncomplicated Qualified Code(s): F17.210 - Nicotine dependence, cigarettes, uncomplicated (3) Opioid dependence with withdrawal Status: Acute (4) Substance induced mood disorder Status: Acute (5) Uncomplicated sedative, hypnotic or anxiolytic withdrawal Status: Acute (6) ADD (attention deficit disorder) Status: Chronic - AMA Did Patient Leave Against Medical Advice: No
== END 2016-05-22 07:15 | disposition home or self-care (01) | DRG 773 ==
LOC: YASAS 20:48 → Y6N 22:19
PROVIDERS: ADMIT Internal Medicine; ATTEND Internal Medicine
PROC: HZ2ZZZZ Detoxification Services for Substance Abuse Treatment (ICD-10-PCS; principal; 2016-05-22)
DX: F11.23 Opioid dependence with withdrawal (principal); F13.230 Sedative, hypnotic or anxiolytic dependence with withdrawal, uncomplicated; F12.20 Cannabis dependence, uncomplicated; F17.210 Nicotine dependence, cigarettes, uncomplicated; F19.24 Other psychoactive substance dependence with psychoactive substance-induced mood disorder; F32.9 Major depressive disorder, single episode, unspecified; F98.8 Other specified behavioral and emotional disorders with onset usually occurring in childhood and adolescence; R63.4 Abnormal weight loss; Z68.21 Body mass index [BMI] 21.0-21.9, adult
CPT/HCPCS: 36415; 80053; 81003; 85027; 86593; 87389; 93005; 93010

== ENCOUNTER 2016-05-20 15:05 | Emergency (ER) | payer SELFPAY ==
[2016-05-20 15:39] VITALS: BP 98/58; PULSE 95; TEMP 97.8; BMI 20.9
--- NOTE | 2016-05-20 16:01 | PDOC ---
History of Present Illness - General Chief Complaint: Injury Stated Complaint: STUBBED TOE Time Seen by Provider: 05/20/16 15:36 History Source: Patient Exam Limitations: No Limitations - History of Present Illness Initial Comments: 05/20/16 16:08 05/20/16 16:10 My Chief Complaint: rt. fourth toe History of Present Illness: Patient is a 30 year old female with a history of ADD and opoid dependence here today for detox on [address]. patient reports hitting her right fourth toe on the leg of a chair this morning. Patient has noticeable bruising slight swelling to her right fourth toe with slightly decreased range of motion of right toe. To speak with patient and she told me I don't want to have an x-ray don't want anything done I want to go back to detox. He reports hitting her right fourth toe on a chair leg today. Patient reports that it is painful to touch and to walk however she wants to return to detox. Patient denies any numbness of the right fourth toe. Occurred: reports: this morning Severity: reports: moderate (rt. toe ) Pain Location: reports: lower extremity (rt. 4th toe pain with bruising hit on chair leg today) Method of Injury: Yes: direct blow (to leg of chair) Modifying Factors: improves with: immobilization Past History - Past Medical History Allergies/Adverse Reactions: Allergies Allergy/AdvReac Type Severity Reaction Status Date / Time Sulfa (Sulfonamide Allergy Severe Cough Verified 05/20/16 15:36 Antibiotics) Home Medications: Ambulatory Orders Alprazolam [Xanax] 0.5 mg PO BID 05/16/16 Bupropion HCl [Wellbutrin Xl -] 300 mg PO DAILY 05/16/16 Dextroamphetamine/Amphetamine [Adderall 10 mg Tablet] 30 mg PO TID 05/16/16 Anemia: No Asthma: No Cancer: No Cardiac Disorders: No CVA: No COPD: No CHF: No Dementia: No Diabetes: No GI Disorders: No Disorders: No HTN: No Hypercholesterolemia: No Kidney Stones: No Liver Disease: No Suicide Attempt (Hx): No Seizures: No Thyroid Disease: No Other medical history: DENIES. - Surgical History Abdominal Surgery: No Appendectomy: No Cardiac Surgery: No Cholecystectomy: No Lung Surgery: No Neurologic Surgery: No Orthopedic Surgery: No - Reproductive History PID: No - Psycho/Social/Smoking Cessation Hx Anxiety: Yes Suicidal Ideation: No Smoking History: Current every day smoker Have you smoked in the past 12 months: Yes Number of Cigarettes Smoked Daily: 10 Cigars Per Day: 0 Information on smoking cessation initiated: No 'Breaking Loose' booklet given: 05/16/16 Hx Alcohol Use: No Drug/Substance Use Hx: Yes Substance Use Type: Heroin, Marijuana, Opiates, Tranquilizers Hx Substance Use Treatment: No Trauma Specific PMHX - Complaint Specific PMHX Arthritis: No Review of Systems - Review of Systems Able to Perform ROS?: Yes Constitutional: No: Symptoms Reported HEENTM: No: Symptoms Reported Respiratory: No: Symptoms reported Cardiac (ROS): No: Symptoms Reported ABD/GI: No: Symptoms Reported : No: Symptoms Reported Musculoskeletal: Yes: Joint Pain (rt. 4th toe ), Joint Swelling (rt. 4th toe) Integumentary: Yes: Bruising (rt. 4th bruising of toe) Neurological: No: Symptoms reported *Physical Exam - Vital Signs Last Vital Signs Temp Pulse Resp BP Pulse Ox 97.8 F 95 H 19 98/58 96 05/20/16 15:36 05/20/16 15:36 05/20/16 15:36 05/20/16 15:36 05/20/16 15:36 - Physical Exam General Appearance: Yes: Appropriately Dressed Vascular Pulses: Dorsalis-Pedis (R): 4+ Extremity: positive: Normal Capillary Refill, Swelling (slight rt. 4th ). negative: Normal Range of Motion (rt. 4th toe ) Integumentary: positive: Ecchymosis (rt. 4th toe ) Medical Decision Making - Medical Decision Making 05/20/16 16:13 Patient is a 30 year old female with a history of ADD and opoid dependence here today for detox on [address]. patient reports hitting her right fourth toe on the leg of a chair this morning. Patient has noticeable bruising slight swelling to her right fourth toe with slightly decreased range of motion of right toe. To speak with patient and she told me I don't want to have an x-ray don't want anything done I want to go back to detox. He reports hitting her right fourth toe on a chair leg today. Patient reports that it is painful to touch and to walk however she wants to return to detox. Patient denies any numbness of the right fourth toe. Injury to rt. 4th toe PLAN: urine hcg pt. did not want completed refused xray rt. 4th toe explained to patient that not following up with care with xray and treatment here could result in her having difficulty walking and possible permanent neurologically damage to toe pt. signed AMA detox was called spoke to Hallie Mendoza Nurse on [address] she would like a copy of the AMA form given to pt., security called to transport her back to detox *DC/Admit/Observation/Transfer Diagnosis at time of Disposition: Injury of toe on right foot Qualifiers: Encounter type: initial encounter Qualified Code(s): S99.921A - Unspecified injury of right foot, initial encounter - Discharge Dispostion Disposition: I.P. ALCOHOL/SUBS ABUSE REHAB - Patient Instructions Additional Instructions: Pt will return to detox on [address] with security spoke with nurse Hallie Mendoza from [address]
== END 2016-05-20 16:06 | disposition left against medical advice (07) ==
LOC: JERFT 15:05
DX: S90.121A Contusion of right lesser toe(s) without damage to nail, initial encounter (principal); W22.03XA Walked into furniture, initial encounter; Y93.89 Activity, other specified; Y92.238 Other place in hospital as the place of occurrence of the external cause; F11.23 Opioid dependence with withdrawal; F98.8 Other specified behavioral and emotional disorders with onset usually occurring in childhood and adolescence
CPT/HCPCS: 99281-25

== ENCOUNTER 2016-07-17 10:17 | Inpatient (IN) | payer OTHER ==
[2016-07-17 10:43] VITALS: BMI 20.6
--- NOTE | 2016-07-17 12:31 | HP ---
COWS - Scale Resting Pulse: 4= [place] > 121 Sweatin=Flushed/Facial Moisture Restless Observation: 1= Difficult to Sit Still Pupil Size: 1= Pupils >than Normal Bone or Joint Aches: 2= Severe Diffuse Aches Runny Nose/ Eye Tearin= Runny Nose/Eyes GI Upset > 30mins: 2= Nausea/Diarrhea Tremor Observation: 2= Slight Tremor Visible Yawning Observation: 1= 1-2x During Session Anxiety or Irritability: 2=Irritable/Anxious Goose Flesh Skin: 3=Piloerection COWS Score: 22 Admission ROS S - HPI Chief Complaint: "I want to get clean for my son." Pt. is here to Detox From Heroin. Allergies/Adverse Reactions: Allergies Allergy/AdvReac Type Severity Reaction Status Date / Time Sulfa (Sulfonamide Allergy Severe Cough Verified 05/20/16 15:36 Antibiotics) History of Present Illness: Pt. is a 30 YO female here to Detox from Heroin. Pt. has had 1 previous detox admission at [facility] (04/2016). Exam Limitations: No Limitations - Ebola screening Have you traveled outside of the country in the last 21 days: No Have you had contact with anyone from an Ebola affected area: No Have you been sick,other than usual withdrawal symptoms: No Do you have a fever: No - Review of Systems Constitutional: Diaphoresis, Fever, Loss of Appetite, Malaise, Night Sweats, Changes in sleep, Unintentional Wgt. Loss (Lost approx. 10 lbs. last 1 month.) EENT: reports: Tearing, Tinnitus, Nose Congestion, Sinus Pressure Respiratory: reports: Shortness of Breath Cardiac: reports: Palpitations GI: reports: Constipated, Diarrhea, Poor Appetite : reports: No Symptoms Reported Musculoskeletal: reports: Back Pain, Neck Pain Integumentary: reports: No Symptoms Reported Neuro: reports: Numbness (Bilateral Legs (started when pt. started detoxing).), Tingling (Bilateral Legs (started when pt. started detoxing).), Tremors Endocrine: reports: No Symptoms Reported Hematology: reports: No Symptoms Reported Psychiatric: reports: Judgement Intact, Mood/Affect Appropiate, Orientated x3, Anxious, Depressed Other Systems: Reviewed and Negative Patient History - Patient Medical History Hx Anemia: No Hx Asthma: No Hx Chronic Obstructive Pulmonary Disease (COPD): No Hx Cancer: No Hx Cardiac Disorders: No Hx Congestive Heart Failure: No Hx Hypertension: No Hx Hypercholesterolemia: No Hx Pacemaker: No HX Cerebrovascular Accident: No Hx Seizures: No Hx Dementia: No Hx Diabetes: No Hx Gastrointestinal Disorders: No Hx Liver Disease: No Hx Genitourinary Disorders: No Hx Sexually Transmitted Disorders: No Hx Renal Disease (ESRD): No Hx Thyroid Disease: No Hx Human Immunodeficiency Virus (HIV): No (LAST 03/11 NEGATIVE) Hx Hepatitis C: No (Last tested: 04/2015: NEGATIVE.) Hx Depression: Yes (On meds.) Hx Suicide Attempt: No (PATIENT DENIES CURRENT SI / HI.) Hx Bipolar Disorder: Yes (On meds.) Hx Schizophrenia: No - Patient Surgical History Past Surgical History: No Hx Neurologic Surgery: No Hx Cataract Extraction: No Hx Cardiac Surgery: No Hx Lung Surgery: No Hx Breast Surgery: No Hx Breast Biopsy: No Hx Abdominal Surgery: No Hx Appendectomy: No Hx Cholecystectomy: No Hx Genitourinary Surgery: No Hx Section: No Hx Orthopedic Surgery: No Anesthesia Reaction: No - PPD History Previous Implant?: Yes Implanted On Prior [facility] Admission?: Yes Date: 05/19/16 Results: 0 mm PPD to be Administered?: No - Reproductive History Patient is a Female of Child Bearing Age (11 -55 yrs old): Yes Last Menstrual Period: 06/21/16 Patient : No - Smoking Cessation Smoking history: Current every day smoker Have you smoked in the past 12 months: Yes Aproximately how many cigarettes per day: 10 Cigars Per Day: 0 Hx Chewing Tobacco Use: No Initiated information on smoking cessation: Yes 'Breaking Loose' booklet given: 07/17/16 (GIVEN ON UNIT.) - Substance & Tx. History Hx Alcohol Use: No Hx Substance Use: Yes Substance Use Type: Heroin, Opiates Hx Substance Use Treatment: Yes (1 Previous Detox admission at [facility].) - Substances Abused Heroin Route: Inhalation Frequency: Daily Amount used: 5 bags Age of first use: 29 Date of Last Use: 07/16/16 oxycodone Route: Inhalation Frequency: Daily Amount used: 30 mg Age of first use: 29 Date of Last Use: 07/16/16 Family Disease History - Family Disease History Family History: Denies Admission Physical Exam S - Vital Signs Vital Signs: Vital Signs - 24 hr 07/17/16 10:33 Temperature 97.4 F L Pulse Rate 124 H Respiratory 18 Rate Blood Pressure 95/76 - Physical General Appearance: Yes: Nourished, Appropriately Dressed, Moderate Distress, Tremorous, Sweating, Anxious HEENTM: Yes: Hearing grossly Normal, Normocephalic, Normal Voice, AGATA, Pharynx Normal Respiratory: Yes: Chest Non-Tender, Lungs Clear, No Respiratory Distress Neck: Yes: No masses,lesions,Nodules, Supple, Trachea in good position Breast: Yes: Breast Exam Deferred Cardiology: Yes: Regular Rhythm, S1, S2, Tachycardia Abdominal: Yes: Normal Bowel Sounds, Non Tender, Flat, Soft Genitourinary: Yes: Within Normal Limits Back: Yes: Decreased Range of Motion Musculoskeletal: Yes: Gait Steady, Back pain, Muscle Pain Extremities: Yes: Normal Range of Motion, Non-Tender, Tremors Neurological: Yes: Fully Oriented, Alert, Normal Mood/Affect, Normal Response Integumentary: Yes: Normal Color, Warm, Diaphoresis Lymphatic: Yes: Within Normal Limits - Diagnostic (1) Depression Current Visit: Yes Status: Chronic Qualifiers: Depression Type: unspecified Qualified Code(s): F32.9 - Major depressive disorder, single episode, unspecified (2) Nicotine dependence Current Visit: Yes Status: Chronic Qualifiers: Nicotine product type: cigarettes Substance use status: uncomplicated Qualified Code(s): F17.210 - Nicotine dependence, cigarettes, uncomplicated (3) Opioid dependence with withdrawal Current Visit: Yes Status: Acute (4) ADHD (attention deficit hyperactivity disorder) Current Visit: Yes Status: Chronic Qualifiers: Attention deficit-hyperactivity disorder type: unspecified Qualified Code(s): F90.9 - Attention-deficit hyperactivity disorder, unspecified type Cleared for Admission [facility] - Detox or Rehab [facility] Level of Care: Medically Managed Detox Regimen/Protocol: Methadone [facility] Breath Alcohol Content Breath Alcohol Content: 0 Urine Pregancy Test - Result Urine Test Results: Negative- NO Line Present Urine Drug Screen - Results Drug Screen Negative: No Urine Drug Screen Results: THC-Marijuana, DAWNA-Cocaine, OPI-Opiates, AMP- Amphetamines, BZO-Benzodiazepines, OXY-Oxycodone
[2016-07-17] MEDS ORDERED: METHADONE HCL 10 MG TABLET (FOR DETOX USE ONLY) PO ONE ×2 (13:07→23:00)
[2016-07-17] MEDS ORDERED: LOPERAMIDE HCL 2 MG CAPSULE PO PRN (13:07)
[2016-07-17] MEDS ORDERED: P-EPHED 60MG/TRIPROLIDI 2.5MG TABLET PO PRN (13:07)
[2016-07-17] MEDS ORDERED: MAGNESIUM HYDROX 2400MG/30ML ORAL SUSPENSION 30 ML CUP PO PRN (13:07)
[2016-07-17] MEDS ORDERED: ACETAMINOPHEN 325 MG TABLET (FP) PO PRN (13:07)
[2016-07-17] MEDS ORDERED: MAGNESIUM CITRATE 300 ML BOTTLE PO PRN (13:07)
[2016-07-17] MEDS ORDERED: MENTHOL/PHENOL 1 EACH UD MM PRN (13:07)
[2016-07-17] MEDS ORDERED: MAG HYDROX/AL HYDROX/SIMETH 30 ML UNIT-DOSE CUP PO PRN (13:07)
[2016-07-17] MEDS ORDERED: diphenhydrAMINE HCL 50 MG CAPSULE PO PRN (13:07)
[2016-07-17] MEDS ORDERED: IBUPROFEN 400 MG TABLET (FP) PO PRN (13:07)
[2016-07-17] MEDS ORDERED: hydrOXYzine PAMOATE 50 MG CAPSULE (FP) PO PRN (13:07)
[2016-07-17] MEDS ORDERED: guaiFENesin/D-METHORPHAN HB 10 ML UNIT-DOSE CUPS PO PRN (13:07)
[2016-07-17] MEDS ORDERED: NICOTINE POLACRILEX 2 MG GUM BUC PRN (13:07)
[2016-07-17] MEDS: diazePAM 5 MG TABLET PO PRN ×2 (13:39→22:07)
[2016-07-17] MEDS: NICOTINE 21 MG/24 HOURS TOPICAL PATCH TD SCH (13:40)
[2016-07-17 19:33] LABS: URINE APPEARANCE CLOUDY; URINE BILIRUBIN NEGATIVE (NEGATIVE); URINE BLOOD NEGATIVE (NEGATIVE); URINE COLOR YELLOW; URINE GLUCOSE (UA) NEGATIVE (NEGATIVE); URINE KETONE NEGATIVE (NEGATIVE); URINE NITRITE NEGATIVE (NEGATIVE); URINE PROTEIN NEGATIVE (NEGATIVE); URINE UROBILINOGEN NEGATIVE E.U./dl (0.2-1.0)
[2016-07-17 19:37] LABS: URINE LEUK ESTERASE 3+ (NEGATIVE)
[2016-07-17 19:50] LABS: URINE BACTERIA MODERATE /hpf (NONE SEEN); URINE MUCUS RARE; URINE RBC 3 /hpf (0-3); URINE WBC 38 /hpf (3-5)
[2016-07-17] MEDS: THIAMINE HCL 100 MG TABLET (FP) PO SCH (22:07)
[2016-07-18] MEDS ORDERED: METHADONE HCL 10 MG TABLET (FOR DETOX USE ONLY) PO ONE (10:00)
[2016-07-18 10:05] LABS: MCH 26.4 pg (25.7-33.7); MCHC 32.2 g/dl (32.0-36.0); MEAN PLT VOLUME 9.7 fl (7.5-11.1); PLATELET COUNT 179 K/MM3 (134-434); RDW 13.1 % (11.6-15.6); WHITE BLOOD COUNT 8.6 K/mm3 (4.0-10.0)
--- NOTE | 2016-07-18 10:19 | CONSULT ---
[facility] Psychiatric Consult - Data Date of interview: 07/18/16 Admission source: [facility] Identifying data: This is 30 years old male with no psychiatric hospitalization history intoxicated with: Opioids, Cannabis amnjd Nicotine, xanax Substance Abuse History: - Smoking Cessation. Smoking history: Current every day smoker. Have you smoked in the past 12 months: Yes. Aproximately how many cigarettes per day: 10. Cigars Per Day: 0. Hx Chewing Tobacco Use: No. Initiated information on smoking cessation: Yes. 'Breaking Loose' booklet given : 07/17/16 (GIVEN ON UNIT.). - Substance & Tx. History. Hx Alcohol Use: No. Hx Substance Use: Yes. Substance Use Type: Heroin, Opiates. Hx Substance Use Treatment: Yes (1 Previous Detox admission at [facility] - Substances Abused. Heroin. Route: Inhalation. Frequency: Daily. Amount used: 5 bags. Age of first use: 29. Date of Last Use: 07/16/16. oxycodone. Route: Inhalation. Frequency: Daily. Amount used: 30 mg. Age of first use: 29. Date of Last Use : 07/16/16 Medical History: Weight loss history Psychiatric History: Patient reprotsd history of depression, reports taking prior to admisison: Wellbutrin XL 300mg poqd Physical/Sexual Abuse/Trauma History: Denies Additional Comment: Wellbutrin XL 300mg poqd Mental Status Exam - Mental Status Exam Alert and Oriented to: Person Cognitive Function: Fair Patient Appearance: Unkempt Mood: Angry, Anxious Affect: Normal Range Patient Behavior: Cooperative Speech Pattern: Appropriate Voice Loudness: Normal Thought Process: Goal Oriented Thought Disorder: Being Controlled Hallucinations: Denies Suicidal Ideation: Denies Homicidal Ideation: Denies Insight/Judgement: Fair Sleep: Difficulty falling asleep Appetite: Weight loss Muscle strength/Tone: Normal Gait/Station: Normal Additional Comments: Wellbutrin XL 300mg poqd Psychiatric Findings - Problem List ([place] 1, 2,3) (1) Opioid dependence with withdrawal Current Visit: Yes Status: Acute (2) ADHD (attention deficit hyperactivity disorder) Current Visit: Yes Status: Chronic Qualifiers: Attention deficit-hyperactivity disorder type: unspecified Qualified Code(s): F90.9 - Attention-deficit hyperactivity disorder, unspecified type (3) Depression Current Visit: Yes Status: Chronic Qualifiers: Depression Type: unspecified Qualified Code(s): F32.9 - Major depressive disorder, single episode, unspecified (4) Nicotine dependence Current Visit: Yes Status: Chronic Qualifiers: Nicotine product type: cigarettes Substance use status: uncomplicated Qualified Code(s): F17.210 - Nicotine dependence, cigarettes, uncomplicated (5) Cannabis dependence Current Visit: No Status: Acute (6) Injury of toe on right foot Current Visit: No Status: Acute Qualifiers: Encounter type: initial encounter Qualified Code(s): S99.921A - Unspecified injury of right foot, initial encounter (7) Uncomplicated sedative, hypnotic or anxiolytic withdrawal Current Visit: No Status: Acute (8) ADD (attention deficit disorder) Current Visit: No Status: Chronic - Initial Treatment Plan Initial Treatment Plan: Wellbutrin XL 300mg poqd
[2016-07-18 10:31] LABS: ALBUMIN 3.5 g/dl (3.4-5.0); ALK PHOS 127 U/L (45-117); ANION GAP 8 (8-16); BILIRUBIN,TOTAL 0.8 mg/dL (0.2-1.0); CALCIUM 9.1 mg/dL (8.5-10.1); CO2 29 mmol/L (21-32); COCKROFT - GAULT 85.255; CREATININE 0.9 mg/dL (0.55-1.02); GLUCOSE,RANDOM 89 mg/dL (74-106); SGOT/AST 22 U/L (15-37); SGPT/ALT 36 U/L (12-78); TOT PROT 6.6 g/dl (6.4-8.2)
[2016-07-18] MEDS: PRENATAL VITAMINS W/ FOLIC ACID TABLET (FP) PO SCH (10:31)
[2016-07-18] MEDS: NICOTINE 21 MG/24 HOURS TOPICAL PATCH TD SCH (10:32)
--- NOTE | 2016-07-18 11:04 | PN ---
[facility] COWS - Scale Resting Pulse: 2= [place] 101-120 Sweatin=Flushed/Facial Moisture Restless Observation: 1= Difficult to Sit Still Pupil Size: 0= Normal to Room Light Bone or Joint Aches: 2= Severe Diffuse Aches Runny Nose/ Eye Tearin= Runny Nose/Eyes GI Upset > 30mins: 1= Stomach Cramp Tremor Observation of Outstretched Hands: 2= Slight Tremor Visible Yawning Observation: 0= None Anxiety or Irritability: 2=Irritable/Anxious Goose Flesh Skin: 3=Piloerection COWS Score: 17 [facility] Progress Note (SOAP) Subjective: irritable agitation anxiety sweats shakes interrupted sleep Objective: 07/18/16 11:05 Vital Signs Temperature 96.8 F L 07/18/16 09:25 Pulse Rate 116 H 07/18/16 09:25 Respiratory Rate 18 07/18/16 09:25 Blood Pressure 104/74 07/18/16 09:25 O2 Sat by Pulse Oximetry (%) Laboratory Tests 07/17/16 07/18/16 07/18/16 19:00 07:00 07:00 WBC 8.6 D RBC 5.64 H Hgb 14.9 D Hct 46.3 H MCV 82.0 MCHC 32.2 RDW 13.1 Plt Count 179 MPV 9.7 Sodium 140 Potassium 4.5 Chloride 103 Carbon Dioxide 29 Anion Gap 8 BUN 9 D Creatinine 0.9 D Creat Clearance w eGFR > 60 Random Glucose 89 Calcium 9.1 Total Bilirubin 0.8 D AST 22 ALT 36 Alkaline Phosphatase 127 H Total Protein 6.6 Albumin 3.5 Urine Color Yellow Urine Appearance Cloudy Urine pH 7.0 Ur Specific [place] 1.018 Urine Protein Negative Urine Glucose (UA) Negative Urine Ketones Negative Urine Blood Negative Urine Nitrite Negative Urine Bilirubin Negative Urine Urobilinogen Negative Ur Leukocyte Esterase 3+ H Urine RBC 3 Urine WBC 38 Ur Epithelial Cells Many Urine Bacteria Moderate Urine Mucus Rare RPR Titer 07/18/16 07:00 WBC RBC Hgb Hct MCV MCHC RDW Plt Count MPV Sodium Potassium Chloride Carbon Dioxide Anion Gap BUN Creatinine Creat Clearance w eGFR Random Glucose Calcium Total Bilirubin AST ALT Alkaline Phosphatase Total Protein Albumin Urine Color Urine Appearance Urine pH Ur Specific [place] Urine Protein Urine Glucose (UA) Urine Ketones Urine Blood Urine Nitrite Urine Bilirubin Urine Urobilinogen Ur Leukocyte Esterase Urine RBC Urine WBC Ur Epithelial Cells Urine Bacteria Urine Mucus RPR Titer Nonreactive awake/alert ambulating no acute distress Assessment: 07/18/16 11:06 withdrawal sx Plan: continue detox increase fluids
--- NOTE | 2016-07-18 11:12 | EKG ---
Test Reason : Blood Pressure : / mmHG Vent. Rate : 115 BPM Atrial Rate : 115 BPM P-R Int : 148 ms QRS Dur : 094 ms QT Int : 344 ms P-R-T Axes : 072 051 060 degrees QTc Int : 475 ms SINUS TACHYCARDIA OTHERWISE NORMAL ECG WHEN COMPARED WITH ECG OF 17-MAY-2016 00:32, NO SIGNIFICANT CHANGE WAS FOUND Confirmed by JACKIE SAENZ MD ([id number]) on 07/18/2016 11:11:51 AM Referred By: Confirmed By:JACKIE SAENZ MD
[2016-07-18] MEDS: diazePAM 5 MG TABLET PO PRN (18:56)
[2016-07-18] MEDS: THIAMINE HCL 100 MG TABLET (FP) PO SCH (22:22)
[2016-07-19] MEDS: diazePAM 5 MG TABLET PO PRN ×3 (01:45→13:46)
[2016-07-19] MEDS ORDERED: METHADONE HCL 5 MG TABLET (FOR DETOX USE ONLY) PO ONE (10:00)
[2016-07-19] MEDS: PRENATAL VITAMINS W/ FOLIC ACID TABLET (FP) PO SCH (10:20)
[2016-07-19] MEDS: NICOTINE 21 MG/24 HOURS TOPICAL PATCH TD SCH (10:21)
--- NOTE | 2016-07-19 10:40 | PN ---
[facility] COWS - Scale Resting Pulse: 1= [place] 81-100 Sweatin= Chills/Flushing Restless Observation: 1= Difficult to Sit Still Pupil Size: 1= Pupils >than Normal Bone or Joint Aches: 2= Severe Diffuse Aches Runny Nose/ Eye Tearin= Nasal Congestion GI Upset > 30mins: 1= Stomach Cramp Tremor Observation of Outstretched Hands: 1= Tremor [place], Not Seen Yawning Observation: 0= None Anxiety or Irritability: 2=Irritable/Anxious Goose Flesh Skin: 0=Smooth Skin COWS Score: 11 [facility] Progress Note (SOAP) Subjective: feeling better , sleeping better Objective: 07/19/16 10:38 Vital Signs Temperature 98.9 F 07/19/16 09:53 Pulse Rate 104 H 07/19/16 09:53 Respiratory Rate 16 07/19/16 09:53 Blood Pressure 110/72 07/19/16 09:53 O2 Sat by Pulse Oximetry (%) Laboratory Tests 07/17/16 07/18/16 07/18/16 19:00 07:00 07:00 WBC 8.6 D RBC 5.64 H Hgb 14.9 D Hct 46.3 H MCV 82.0 MCHC 32.2 RDW 13.1 Plt Count 179 MPV 9.7 Sodium 140 Potassium 4.5 Chloride 103 Carbon Dioxide 29 Anion Gap 8 BUN 9 D Creatinine 0.9 D Creat Clearance w eGFR > 60 Random Glucose 89 Calcium 9.1 Total Bilirubin 0.8 D AST 22 ALT 36 Alkaline Phosphatase 127 H Total Protein 6.6 Albumin 3.5 Urine Color Yellow Urine Appearance Cloudy Urine pH 7.0 Ur Specific [place] 1.018 Urine Protein Negative Urine Glucose (UA) Negative Urine Ketones Negative Urine Blood Negative Urine Nitrite Negative Urine Bilirubin Negative Urine Urobilinogen Negative Ur Leukocyte Esterase 3+ H Urine RBC 3 Urine WBC 38 Ur Epithelial Cells Many Urine Bacteria Moderate Urine Mucus Rare RPR Titer 07/18/16 07:00 WBC RBC Hgb Hct MCV MCHC RDW Plt Count MPV Sodium Potassium Chloride Carbon Dioxide Anion Gap BUN Creatinine Creat Clearance w eGFR Random Glucose Calcium Total Bilirubin AST ALT Alkaline Phosphatase Total Protein Albumin Urine Color Urine Appearance Urine pH Ur Specific [place] Urine Protein Urine Glucose (UA) Urine Ketones Urine Blood Urine Nitrite Urine Bilirubin Urine Urobilinogen Ur Leukocyte Esterase Urine RBC Urine WBC Ur Epithelial Cells Urine Bacteria Urine Mucus RPR Titer Nonreactive pt aox3 in nad ambulating Assessment: 07/19/16 10:39 withdrawal sx's Plan: cont. detox increase fluids
[2016-07-19 13:35] VITALS: BP 114/66; PULSE 114; TEMP 96.7
--- NOTE | 2016-07-19 17:00 | DS ---
[facility] Detox Discharge Summary Admission Date: 07/17/16 Discharge Date: 07/19/16 - History Present History: Cannabis Dependence, Opioid Dependence Additional Comments: patient insists to leave the unit refuses to wait face to face with the provider refuses e prescription Pertinent Past History: depression nicotine - Physical Exam Results Vital Signs: Vital Signs Temperature 96.7 F L 07/19/16 13:34 Pulse Rate 114 H 07/19/16 13:34 Respiratory Rate 20 07/19/16 13:34 Blood Pressure 114/66 07/19/16 13:34 O2 Sat by Pulse Oximetry (%) Pertinent Admission Physical Exam Findings: withdrawal sx Laboratory Last Values WBC 8.6 K/mm3 (4.0-10.0) D 07/18/16 07:00 RBC 5.64 M/mm3 (3.60-5.2) H 07/18/16 07:00 Hgb 14.9 GM/dL (10.7-15.3) D 07/18/16 07:00 Hct 46.3 % (32.4-45.2) H 07/18/16 07:00 MCV 82.0 fl (80-96) 07/18/16 07:00 MCHC 32.2 g/dl (32.0-36.0) 07/18/16 07:00 RDW 13.1 % (11.6-15.6) 07/18/16 07:00 Plt Count 179 K/MM3 (134-434) 07/18/16 07:00 MPV 9.7 fl (7.5-11.1) 07/18/16 07:00 Sodium 140 mmol/L (136-145) 07/18/16 07:00 Potassium 4.5 mmol/L (3.5-5.1) 07/18/16 07:00 Chloride 103 mmol/L (98-107) 07/18/16 07:00 Carbon Dioxide 29 mmol/L (21-32) 07/18/16 07:00 Anion Gap 8 (8-16) 07/18/16 07:00 BUN 9 mg/dL (7-18) D 07/18/16 07:00 Creatinine 0.9 mg/dL (0.55-1.02) D 07/18/16 07:00 Creat Clearance w eGFR > 60 (>60) 07/18/16 07:00 Random Glucose 89 mg/dL (74-106) 07/18/16 07:00 Calcium 9.1 mg/dL (8.5-10.1) 07/18/16 07:00 Total Bilirubin 0.8 mg/dL (0.2-1.0) D 07/18/16 07:00 AST 22 U/L (15-37) 07/18/16 07:00 ALT 36 U/L (12-78) 07/18/16 07:00 Alkaline Phosphatase 127 U/L (45-117) H 07/18/16 07:00 Total Protein 6.6 g/dl (6.4-8.2) 07/18/16 07:00 Albumin 3.5 g/dl (3.4-5.0) 07/18/16 07:00 Urine Color Yellow 07/17/16 19:00 Urine Appearance Cloudy 07/17/16 19:00 Urine pH 7.0 (5.0-8.0) 07/17/16 19:00 Ur Specific [place] 1.018 (1.001-1.035) 07/17/16 19:00 Urine Protein Negative (NEGATIVE) 07/17/16 19:00 Urine Glucose (UA) Negative (NEGATIVE) 07/17/16 19:00 Urine Ketones Negative (NEGATIVE) 07/17/16 19:00 Urine Blood Negative (NEGATIVE) 07/17/16 19:00 Urine Nitrite Negative (NEGATIVE) 07/17/16 19:00 Urine Bilirubin Negative (NEGATIVE) 07/17/16 19:00 Urine Urobilinogen Negative E.U./dl (0.2-1.0) 07/17/16 19:00 Ur Leukocyte Esterase 3+ (NEGATIVE) H 07/17/16 19:00 Urine RBC 3 /hpf (0-3) 07/17/16 19:00 Urine WBC 38 /hpf (3-5) 07/17/16 19:00 Ur Epithelial Cells Many /hpf (FEW) 07/17/16 19:00 Urine Bacteria Moderate /hpf (NONE SEEN) 07/17/16 19:00 Urine Mucus Rare 07/17/16 19:00 RPR Titer Nonreactive (NONREACTIVE) 07/18/16 07:00 lab noted - Treatment Hospital Course: Detox Protocol Followed, Responded well - Medication Discharge Medications: Ambulatory Orders Alprazolam [Xanax] 0.5 mg PO BID 05/16/16 Bupropion HCl [Wellbutrin Xl -] 300 mg PO DAILY 05/16/16 Dextroamphetamine/Amphetamine [Adderall 10 mg Tablet] 30 mg PO TID 05/16/16 - Diagnosis (1) Opioid dependence with withdrawal Status: Acute (2) Nicotine dependence Status: Acute Qualifiers: Nicotine product type: cigarettes Substance use status: in withdrawal Qualified Code(s): F17.213 - Nicotine dependence, cigarettes, with withdrawal (3) Cannabis dependence Status: Chronic (4) Weight loss Status: Acute - AMA Did Patient Leave Against Medical Advice: Yes
[2016-07-20] MEDS ORDERED: METHADONE HCL 5 MG TABLET (FOR DETOX USE ONLY) PO ONE (10:00)
[2016-07-21] MEDS ORDERED: METHADONE HCL 10 MG TABLET (FOR DETOX USE ONLY) PO ONE (10:00)
[2016-07-22] MEDS ORDERED: METHADONE HCL 5 MG TABLET (FOR DETOX USE ONLY) PO ONE (06:00)
--- NOTE | 2016-08-04 15:47 | DS ---
[facility] Detox Discharge Summary Admission Date: 07/17/16 Discharge Date: 07/19/16 - History Present History: Opioid Dependence - Physical Exam Results Vital Signs: Vital Signs Temperature 96.7 F L 07/19/16 13:34 Pulse Rate 114 H 07/19/16 13:34 Respiratory Rate 20 07/19/16 13:34 Blood Pressure 114/66 07/19/16 13:34 O2 Sat by Pulse Oximetry (%) - Treatment Hospital Course: Detox Protocol Followed - Medication Discharge Medications: Ambulatory Orders Alprazolam [Xanax] 0.5 mg PO BID 05/16/16 Bupropion HCl [Wellbutrin Xl -] 300 mg PO DAILY 05/16/16 Dextroamphetamine/Amphetamine [Adderall 10 mg Tablet] 30 mg PO TID 05/16/16 - Diagnosis (1) Nicotine dependence Status: Acute Qualifiers: Nicotine product type: cigarettes Substance use status: in withdrawal Qualified Code(s): F17.213 - Nicotine dependence, cigarettes, with withdrawal (2) Opioid dependence with withdrawal Status: Chronic (3) Uncomplicated sedative, hypnotic or anxiolytic withdrawal Status: Chronic (4) ADD (attention deficit disorder) Status: Chronic (5) ADHD (attention deficit hyperactivity disorder) Status: Chronic Qualifiers: Attention deficit-hyperactivity disorder type: unspecified Qualified Code(s): F90.9 - Attention-deficit hyperactivity disorder, unspecified type (6) Cannabis dependence Status: Chronic (7) Depression Status: Chronic Qualifiers: Depression Type: unspecified Qualified Code(s): F32.9 - Major depressive disorder, single episode, unspecified - AMA Did Patient Leave Against Medical Advice: Yes (PT WALKED OFF UNIT AND REFUSED TO SIGN ama.)
== END 2016-07-19 16:45 | disposition left against medical advice (07) | DRG 770 ==
LOC: YASAS 10:17 → Y6N 11:57
PROVIDERS: ADMIT Internal Medicine Addiction Medicine; ATTEND Internal Medicine Addiction Medicine
PROC: HZ2ZZZZ Detoxification Services for Substance Abuse Treatment (ICD-10-PCS; principal; 2016-07-19)
DX: F11.23 Opioid dependence with withdrawal (principal); F13.230 Sedative, hypnotic or anxiolytic dependence with withdrawal, uncomplicated; F12.20 Cannabis dependence, uncomplicated; F17.213 Nicotine dependence, cigarettes, with withdrawal; F90.9 Attention-deficit hyperactivity disorder, unspecified type; F32.9 Major depressive disorder, single episode, unspecified; R63.4 Abnormal weight loss; Z68.20 Body mass index [BMI] 20.0-20.9, adult
CPT/HCPCS: 36415; 80053; 81003; 81015; 85027; 86593; 93005; 93010